=== PATIENT | female | born 1945 | race Caucasian/White ===

== ENCOUNTER 2024-04-23 15:08 | Emergency (ER) | payer MEDICARE ==
[2024-04-23 15:48] VITALS: RESP 18; TEMP 98.9; BMI 41.5
[2024-04-23] MEDS ORDERED: SODIUM CHLORIDE 1,000 ML IV STA (16:27)
[2024-04-23] MEDS ORDERED: ACETAMINOPHEN 325 MG TABLET (FP) ONE (16:58)
[2024-04-23] MEDS: ACETAMINOPHEN 325 MG TABLET (FP) PO ONE (17:02)
[2024-04-23 17:06] VITALS: BP 142/81; PULSE 72
== END 2024-04-23 17:07 | disposition home or self-care (01) ==
LOC: JER 15:08
DX: R55 Syncope and collapse (principal); R42 Dizziness and giddiness; H53.8 Other visual disturbances; Z20.822 Contact with and (suspected) exposure to COVID-19
CPT/HCPCS: 0241U-QW; 93005; 93010; 99284-25

== ENCOUNTER 2024-12-11 07:14 | Observation (INO) | payer OTHER ==
[2024-12-11] MEDS: ALBUTEROL SO4 2.5/IPRATROPIUM 0.5 INH SOL 3 ML VIAL.NEB. NEB SCH ×2 (08:00→08:15)
[2024-12-11] MEDS ORDERED: ALBUTEROL SO4 2.5/IPRATROPIUM 0.5 INH SOL 3 ML VIAL.NEB. NEB ONE (08:06)
[2024-12-11] MEDS ORDERED: ACETAMINOPHEN INJECTION 100 ML ONE (08:06)
[2024-12-11] MEDS ORDERED: METOCLOPRAMIDE HCL INJECTION 10 MG/2 ML VIAL ONE (08:06)
[2024-12-11] MEDS: ACETAMINOPHEN 1000 MG/100 ML BAG IVPB ONE (08:14)
[2024-12-11] MEDS: SODIUM CHLORIDE 0.9% 500 ML INFUS.BAG IV ONE (08:14)
[2024-12-11] MEDS: ALBUTEROL SO4 2.5/IPRATROPIUM 0.5 INH SOL 3 ML VIAL.NEB. NEB ONE (08:15)
[2024-12-11] MEDS: METOCLOPRAMIDE HCL INJECTION 10 MG/2 ML VIAL IVPB ONE (08:15)
[2024-12-11 08:19] LABS: VENOUS O2 SATURATION 85.3 % (70-80); VENOUS PCO2 38.9 mmHg (38-52); VENOUS PH 7.401 (7.310-7.410)
[2024-12-11 08:37] LABS: ABSOLUTE IMMATURE GRANULOCYTES 0.02 x10^3/uL (0.0-0.031); BASOPHILS # 0.01 x10^3/uL (0.01-0.08); EOSINOPHIL % 1.7 % (0.7-5.8); EOSINOPHILS # 0.09 x10^3/uL (0.04-0.36); HEMATOCRIT 33.6 % (34.1-44.9); HEMOGLOBIN 10.5 g/dL (11.2-15.7); MCHC 31.3 g/dl (32.2-35.5); MEAN CELL VOLUME 91.6 fl (79.4-94.8); MONOCYTE # 0.72 x10^3/uL (0.24-0.86); MONOCYTE % 13.8 % (4.7-12.5); PLATELET COUNT 283 x10^3/uL (182-369); RDW 15.2 % (12.4-16.6)
[2024-12-11 08:45] LABS: POTASSIUM 4.2 mmol/L (3.5-5.1)
[2024-12-11 08:47] LABS: CALCIUM 8.7 mg/dL (8.5-10.1)
[2024-12-11 08:48] LABS: ALBUMIN 3.3 g/dl (3.4-5.0); BLOOD UREA NITROGEN 7.2 mg/dL (7-18)
[2024-12-11 08:51] LABS: CREATININE 0.9 mg/dL (0.55-1.3)
[2024-12-11 08:53] LABS: BILIRUBIN,TOTAL 0.4 mg/dL (0.2-1); TOT PROT 6.9 g/dl (6.4-8.2)
[2024-12-11] MEDS ORDERED: KETOROLAC TROMETHAMINE 15 MG/ML VIAL ONE (10:08)
[2024-12-11] MEDS ORDERED: DEXAMETHASONE SOD PHOSPHATE 10 MG/1 ML VIAL ONE (10:08)
[2024-12-11] MEDS: KETOROLAC TROMETHAMINE 15 MG/ML VIAL IVPUSH ONE (10:14)
[2024-12-11] MEDS: DEXAMETHASONE SOD PHOSPHATE 10 MG/1 ML VIAL IVPUSH ONE (10:14)
[2024-12-11] MEDS: REMDESIVIR 200 MG in SODIUM CHLORIDE 250 ML IVPB ONE (13:42)
[2024-12-11 14:40] VITALS: BMI 42.8
[2024-12-11] MEDS: ACETAMINOPHEN 1000 MG/100 ML BAG IVPB PRN (17:33)
[2024-12-11] MEDS: ENOXAPARIN NA (PORCINE) 40 MG/0.4 ML DISP.SYRIN SQ SCH (17:33)
[2024-12-11] MEDS: CEFTRIAXONE 1 G/50 ML PREMIX 50 ML IVPB SCH (18:49)
[2024-12-11] MEDS: AZITHROMYCIN IVPB 500 MG/250 ML BAG IVPB ONE (19:49)
[2024-12-11 19:57] LABS: HCV DIAGNOSTIC IN-HOUSE W/RFLX NON-REACTIVE (NONREACTIVE); HIV INTERPRETATION NEGATIVE (NEGATIVE)
[2024-12-11] MEDS: METHIMAZOLE 5 MG TABLET PO SCH (21:18)
[2024-12-11] MEDS ORDERED: INSULIN ASPART SLIDING SCALE (NOVOLOG) 1 VIAL SQ SCH (22:00)
[2024-12-12 08:02] LABS: ABSOLUTE IMMATURE GRANULOCYTES 0.01 x10^3/uL (0.0-0.031); BASOPHILS # 0.01 x10^3/uL (0.01-0.08); HEMATOCRIT 32.6 % (34.1-44.9); HEMOGLOBIN 10.5 g/dL (11.2-15.7); MCHC 32.2 g/dl (32.2-35.5); MEAN CELL VOLUME 89.3 fl (79.4-94.8); MEAN PLT VOLUME 10.7 fl (9.4-12.3); MONOCYTE % 7.1 % (4.7-12.5); PLATELET COUNT 301 x10^3/uL (182-369)
[2024-12-12 08:24] LABS: POTASSIUM 3.7 mmol/L (3.5-5.1)
[2024-12-12 08:37] LABS: ALBUMIN 3.2 g/dl (3.4-5.0); BLOOD UREA NITROGEN 10.9 mg/dL (7-18); CALCIUM 8.7 mg/dL (8.5-10.1)
[2024-12-12 08:41] LABS: BILIRUBIN,TOTAL 0.2 mg/dL (0.2-1); CREATININE 0.7 mg/dL (0.55-1.3)
[2024-12-12 08:42] LABS: TOT PROT 6.8 g/dl (6.4-8.2)
[2024-12-12] MEDS: DEXAMETHASONE SOD PHOSPHATE 10 MG/1 ML VIAL IVPUSH SCH (11:01)
[2024-12-12] MEDS: HYDROCHLOROTHIAZIDE 12.5 MG CAPSULE (FP) PO SCH (11:03)
[2024-12-12] MEDS: LISINOPRIL 10 MG TABLET PO SCH (11:03)
[2024-12-12] MEDS: AZITHROMYCIN IVPB 250 MG in DEXTROSE 5%-WATER - 250 ML IVPB SCH (11:28)
[2024-12-12] MEDS: ALBUTEROL SO4 2.5/IPRATROPIUM 0.5 INH SOL 3 ML VIAL.NEB. NEB PRN (14:10)
[2024-12-12] MEDS: REMDESIVIR 100 MG in SODIUM CHLORIDE 250 ML IVPB SCH (14:24)
[2024-12-12] MEDS: BENZOCAINE/MENTH/CETYLPYRD CL 1 EACH LOZENGE MM PRN (17:18)
[2024-12-12] MEDS: ACETAMINOPHEN 500 MG TABLET (FP) PO ONE (21:44)
[2024-12-12] MEDS: INSULIN ASPART SLIDING SCALE (NOVOLOG) 1 VIAL SQ SCH (21:45)
[2024-12-12] MEDS: SENNOSIDES 8.6MG TABLET (FP) PO PRN (22:12)
[2024-12-13] MEDS: MELATONIN 5 MG TABLETS PO ONE ×2 (01:27→21:54)
[2024-12-13 07:53] LABS: ABSOLUTE IMMATURE GRANULOCYTES 0.03 x10^3/uL (0.0-0.031); BASOPHILS # 0.01 x10^3/uL (0.01-0.08); EOSINOPHIL % 0.1 % (0.7-5.8); EOSINOPHILS # 0.01 x10^3/uL (0.04-0.36); HEMATOCRIT 32.9 % (34.1-44.9); HEMOGLOBIN 10.4 g/dL (11.2-15.7); MCHC 31.6 g/dl (32.2-35.5); MEAN CELL VOLUME 88.4 fl (79.4-94.8); MEAN PLT VOLUME 11.3 fl (9.4-12.3); MONOCYTE # 0.54 x10^3/uL (0.24-0.86); MONOCYTE % 6.5 % (4.7-12.5); PLATELET COUNT 307 x10^3/uL (182-369); RDW 15.4 % (12.4-16.6)
[2024-12-13 08:18] LABS: POTASSIUM 3.6 mmol/L (3.5-5.1)
[2024-12-13 08:37] LABS: ALBUMIN 3.2 g/dl (3.4-5.0); BLOOD UREA NITROGEN 13.6 mg/dL (7-18)
[2024-12-13 08:40] LABS: CREATININE 0.8 mg/dL (0.55-1.3)
[2024-12-13 08:41] LABS: BILIRUBIN,TOTAL 0.2 mg/dL (0.2-1); TOT PROT 6.8 g/dl (6.4-8.2)
[2024-12-13] MEDS: ONDANSETRON 4 MG/2 ML VIAL IVPUSH PRN (19:38)
[2024-12-13] MEDS: ACETAMINOPHEN 500 MG TABLET (FP) PO ONE (21:53)
[2024-12-14 04:59] VITALS: RESP 18
[2024-12-14] MEDS: guaiFENesin/CODEINE 10 ML UNIT-DOSE CUPS PO PRN (20:29)
[2024-12-14] MEDS: MELATONIN 5 MG TABLETS PO PRN (21:50)
[2024-12-15 08:01] LABS: ABSOLUTE IMMATURE GRANULOCYTES 0.03 x10^3/uL (0.0-0.031); BASOPHILS # 0.01 x10^3/uL (0.01-0.08); HEMATOCRIT 35.8 % (34.1-44.9); HEMOGLOBIN 11.1 g/dL (11.2-15.7); MEAN CELL VOLUME 89.5 fl (79.4-94.8); MEAN PLT VOLUME 11.4 fl (9.4-12.3); MONOCYTE % 9.7 % (4.7-12.5); PLATELET COUNT 328 x10^3/uL (182-369); RDW 15.2 % (12.4-16.6)
[2024-12-15 08:20] LABS: POTASSIUM 3.5 mmol/L (3.5-5.1)
[2024-12-15 08:32] LABS: BLOOD UREA NITROGEN 16.4 mg/dL (7-18)
[2024-12-15 08:33] LABS: ALBUMIN 3.3 g/dl (3.4-5.0)
[2024-12-15 08:36] LABS: CREATININE 0.9 mg/dL (0.55-1.3)
[2024-12-15 08:37] LABS: BILIRUBIN,TOTAL 0.3 mg/dL (0.2-1); TOT PROT 6.6 g/dl (6.4-8.2)
[2024-12-15] MEDS: ACETAMINOPHEN 325 MG TABLET (FP) PO ONE (08:55)
[2024-12-15] MEDS: POLYETHYLENE GLYCOL (HEALTHYLAX) 3350 17 GM PACKET PO SCH (14:09)
[2024-12-15 15:18] VITALS: TEMP 98.1
[2024-12-15 16:47] VITALS: BP 124/70; PULSE 82
== END 2024-12-15 18:34 | disposition home or self-care (01) ==
LOC: JER 07:14 → JERBED 11:39 → J7W 14:39
PROVIDERS: ADMIT Internal Medicine; ATTEND Internal Medicine
PROC: 3E033GC Introduction of Other Therapeutic Substance into Peripheral Vein, Percutaneous Approach (ICD-10-PCS; principal; 2024-12-11)
PROC: 3E0333Z Introduction of Anti-inflammatory into Peripheral Vein, Percutaneous Approach (ICD-10-PCS; 2024-12-11)
PROC: 3E0337Z Introduction of Electrolytic and Water Balance Substance into Peripheral Vein, Percutaneous Approach (ICD-10-PCS; 2024-12-11)
DX: U07.1 COVID-19 (principal); E11.9 Type 2 diabetes mellitus without complications; E07.9 Disorder of thyroid, unspecified; D64.9 Anemia, unspecified; E05.90 Thyrotoxicosis, unspecified without thyrotoxic crisis or storm; Z90.12 Acquired absence of left breast and nipple; C50.919 Malignant neoplasm of unspecified site of unspecified female breast; I10 Essential (primary) hypertension
CPT/HCPCS: 0241U-QW; 36415; 71045-TC-FY; 71250-TC; 80053; 82803; 82962; 83036; 83880; 84443; 84484; 85025; 86803; 87389; 93005; 93010; 94640; 96365; 96366; 96367; 96375; 96376; 99285-25; G0378; J0131; J0248; J1100

== ENCOUNTER 2025-04-21 20:48 | Emergency (ER) | payer OTHER ==
[2025-04-21 20:53] VITALS: RESP 18; TEMP 98.3; BMI 42.4
[2025-04-21] MEDS ORDERED: METOCLOPRAMIDE HCL INJECTION 10 MG/2 ML VIAL ONE (21:06)
[2025-04-21] MEDS ORDERED: ACETAMINOPHEN INJECTION 100 ML ONE (21:07)
[2025-04-21 22:03] LABS: ABSOLUTE IMMATURE GRANULOCYTES 0.01 x10^3/uL (0.0-0.031); BASOPHILS # 0.02 x10^3/uL (0.01-0.08); EOSINOPHIL % 0.9 % (0.7-5.8); EOSINOPHILS # 0.04 x10^3/uL (0.04-0.36); MCHC 31.1 g/dl (32.2-35.5); MEAN CELL VOLUME 87.5 fl (79.4-94.8); MEAN PLT VOLUME 9.8 fl (9.4-12.3); MONOCYTE # 0.70 x10^3/uL (0.24-0.86); MONOCYTE % 15.2 % (4.7-12.5); RDW 15.8 % (12.4-16.6)
[2025-04-21] MEDS: METOCLOPRAMIDE HCL INJECTION 10 MG/2 ML VIAL IVPUSH ONE (22:18)
[2025-04-21] MEDS: SODIUM CHLORIDE 1,000 ML IV STA (22:18)
[2025-04-21] MEDS ORDERED: MECLIZINE HCL 25 MG TABLET (FP) ONE (22:24)
[2025-04-21 22:25] LABS: CO2 30.0 mmol/L (21-32); GLUCOSE,RANDOM 115.0 mg/dL (74-106)
[2025-04-21] MEDS ORDERED: PANTOPRAZOLE SODIUM 40 MG VIAL ONE (22:25)
[2025-04-21 22:27] LABS: SGPT/ALT 16.0 U/L (13-61)
[2025-04-21 22:28] LABS: CREATININE 1.0 mg/dL (0.55-1.3); SGOT/AST 19.0 U/L (15-37)
[2025-04-21 22:29] LABS: TOT PROT 6.9 g/dl (6.4-8.2)
[2025-04-21 22:30] LABS: ALK PHOS 102.0 U/L (45-117)
[2025-04-21] MEDS: PANTOPRAZOLE SODIUM 40 MG VIAL IVPUSH ONE (22:52)
[2025-04-21] MEDS: MECLIZINE HCL 25 MG TABLET (FP) PO ONE (22:52)
[2025-04-21] MEDS: ACETAMINOPHEN 1000 MG/100 ML BAG IVPB ONE (22:53)
[2025-04-22 01:39] LABS: URINE APPEARANCE CLEAR; URINE BILIRUBIN NEGATIVE (NEGATIVE); URINE COLOR YELLOW; URINE GLUCOSE (UA) NEGATIVE (NEGATIVE); URINE KETONE NEGATIVE (NEGATIVE); URINE LEUK ESTERASE NEGATIVE (NEGATIVE); URINE NITRITE NEGATIVE (NEGATIVE); URINE PROTEIN NEGATIVE (NEGATIVE); URINE UROBILINOGEN 1.0 mg/dL (0.2-1.0)
[2025-04-22 02:21] VITALS: BP 152/67; PULSE 68
== END 2025-04-22 02:48 | disposition home or self-care (01) ==
LOC: JER 20:48
PROC: 3E033NZ Introduction of Analgesics, Hypnotics, Sedatives into Peripheral Vein, Percutaneous Approach (ICD-10-PCS; principal; 2025-04-21)
PROC: 3E033GC Introduction of Other Therapeutic Substance into Peripheral Vein, Percutaneous Approach (ICD-10-PCS; 2025-04-21)
PROC: 3E033GC Introduction of Other Therapeutic Substance into Peripheral Vein, Percutaneous Approach (ICD-10-PCS; 2025-04-21)
PROC: 3E033GC Introduction of Other Therapeutic Substance into Peripheral Vein, Percutaneous Approach (ICD-10-PCS; 2025-04-21)
PROC: 3E0337Z Introduction of Electrolytic and Water Balance Substance into Peripheral Vein, Percutaneous Approach (ICD-10-PCS; 2025-04-21)
DX: R11.2 Nausea with vomiting, unspecified (principal); R42 Dizziness and giddiness; R51.9 Headache, unspecified; G89.29 Other chronic pain
CPT/HCPCS: 36415; 70450-TC; 71045-TC-FY; 80053; 81003; 83690; 84484; 85025; 87086; 87637-QW; 93005; 93010; 96361; 96374; 96375; 99285-25